=== PATIENT | female | born 1955 | race Caucasian/White ===

== ENCOUNTER 2022-02-20 07:56 | Outpatient (REF) | payer OTHER, SELFPAY ==
[2022-02-20 11:28] LABS: MANUAL DIFF FLAG NO
[2022-02-20 11:37] LABS: Basophils Absolute Auto 0.1 X10*3/uL (0.0-0.2); Basophils Percent Auto 2.8 % (0-2); Eosinophils Absolute Auto 0.2 X10*3/uL (0.0-0.4); Eosinophils Percent Auto 4.8 % (0-4); Hematocrit 43.4 % (37.0-47.0); Hemoglobin 14.6 g/dl (12.0-16.0); Imm Gran Abs Auto 0.01 X10*3/uL (0.00-0.03); Imm Gran Pct Auto 0.3 % (0.0-0.4); Lymphocytes Absolute Auto 1.5 X10*3/uL (1.2-4.9); Lymphocytes Percent Auto 37.9 % (20-40); Mean Corpuscular HGB Conc 33.6 g/dl (31.0-35.0); Mean Corpuscular Hemoglobin 31.9 pg (27.0-33.0); Mean Platelet Volume 10.1 fL (9.4-12.3); Monocytes Absolute Auto 0.4 X10*3/uL (0.1-1.2); Monocytes Percent Auto 9.7 % (2-11); Neutrophils Absolute Auto 1.8 x10*3/uL (2.0-8.3); Neutrophils Percent Auto 44.5 % (45-73); Platelet Count 251 X10*3/uL (160-400); Red Blood Count 4.57 X10*6/uL (4.20-5.50); Red Cell Distribution Width 12.5 % (11.0-16.0); White Blood Count 3.9 X10*3/uL (4.8-10.8)
[2022-02-20 11:45] LABS: Alanine Aminotransferase 16 U/L (0-31); Albumin Level 4.1 g/dL (3.5-5.0); Alkaline Phosphatase 84 U/L (39-117); Anion Gap 12 (12-20); Aspartate Amino Transferase 19 U/L (5-31); Bilirubin Total 0.4 mg/dL (0.0-1.0); Blood Urea Nitrogen 11 mg/dL (9-16); Calcium 9.6 mg/dL (8.4-10.2); Carbon Dioxide 26 mmol/L (22-29); Chloride 103 mmol/L (96-108); Cholesterol 199 mg/dL; Estimated Glomerular Filt Rate > 60; Glucose Fasting 97 mg/dL (60-99); HDL Cholesterol 58 mg/dL; LDL Cholesterol Calculated 121 mg/dl; Potassium 4.3 mmol/L (3.3-5.1); Sodium 137 mmol/L (135-145); Triglycerides 100 mg/dL
[2022-02-20 12:08] LABS: TSH reflex Free T4 4.01 uIU/mL (0.32-4.0); Vitamin D 25-OH Total 35.7 ng/mL (>30)
[2022-02-20 12:51] LABS: Free T4 (Free Thyroxine) 0.87 ng/dL (0.71-1.85)
== END 2022-02-20 07:57 | disposition home or self-care (01) ==
LOC: HO.HMGCLDS 07:56
PROVIDERS: PCP Internal Medicine; Visit Provider Internal Medicine
DX: Z00.00 Encounter for general adult medical examination without abnormal findings (principal); E55.9 Vitamin D deficiency, unspecified
CPT/HCPCS: 36415; 80053; 80061; 82306; 84439; 84443; 85025

== ENCOUNTER 2022-02-24 10:47 | Outpatient (REF) | payer OTHER, SELFPAY ==
--- NOTE | ~2022-02-24 | MM_ITS ---
EXAMINATION: MM SCREENING DIGITAL BREAST TOMOSYNTHESIS, BILATERAL CLINICAL INFORMATION: Screening. Asymptomatic. The lifetime risk of breast cancer based on the Tyrer-Cuzick Model is 4%. COMPARISON: Outside mammography: 06/09/2017, 07/01/2015 ([facility]). TECHNIQUE: Digital breast tomosynthesis is performed in both the craniocaudal and mediolateral oblique views along with computer-aided detection (CAD). Synthesized 2D images are generated from the tomosynthesis. Additional right exaggerated CC view is provided. FINDINGS: There are scattered areas of fibroglandular density (ACR BI-RADS breast composition Category b). There are no significant masses, abnormal calcifications, or other abnormalities. Parenchymal pattern is similar to prior outside studies. Benign calcifications posterior 12:30 o'clock left breast are stable. There is no developing density or architectural abnormality. The axilla and skin contours are unremarkable. No significant changes. MM/MM tomosynthesis screening BI IMPRESSION: No mammographic evidence of malignancy. ASSESSMENT: BI-RADS 2: Benign RECOMMENDATION: Routine annual mammography screening. This patient's information was entered into a reminder system with a target due date for their next mammogram.
== END 2022-02-24 10:48 | disposition home or self-care (01) ==
LOC: HO.MAMMO 10:47
PROVIDERS: Visit Provider Internal Medicine
DX: Z12.31 Encounter for screening mammogram for malignant neoplasm of breast (principal)
CPT/HCPCS: 77063; 77067

== ENCOUNTER → 2022-08-27 10:41 | Outpatient (BNVA) | payer OTHER, SELFPAY | PROVIDERS: PCP Internal Medicine; Referring Provider Internal Medicine; Visit Provider Physician Assistant | DX: Z86.010 Personal history of colon polyps (principal); Z98.890 Other specified postprocedural states; F17.210 Nicotine dependence, cigarettes, uncomplicated | CPT/HCPCS: 99202 ==

== ENCOUNTER 2023-02-05 07:51 | Day surgery (SDC) | payer MEDICARE, MEDICAID, SELFPAY ==
[2023-02-02 15:09] VITALS: BMI 20.4
--- NOTE | 2023-02-05 08:14 | HO.ANESPROP2 ---
HPI - Anesthesia Eval Consult details Narrative: 67yo female patient for Colonoscopy PMFSH Active Problems Active Problems: All Active Problems (Updated 02/05/23 by Amairani Oliveira MD) Smoking (Acute) Psoriasis (Acute) Hx of colonoscopy with polypectomy (Acute) Vitamin D deficiency (Acute) Annual physical exam (Acute) Anxiety Vagal with IV placement HR 30s BP 70/40 Past Medical History Medical History Psoriasis (a type of skin inflammation) Family History Family history of problems with anesthesia: No Surgical History History of Problems with Anesthesia: No Social History Social History (Updated 02/05/23 @ 09:40 by Amairani Oliveira MD) Housing: Apartment Patient Tobacco Use Status: Current someday Tobacco user e-Cigarette/Vaping Use: Never Used Current occupational status: employed Cognitive needs: No Hearing needs: No Vision needs: No Meds Allergies Allergy/AdvReac Type Severity Reaction Status Date / Time No Known Allergies Allergy Unverified 08/27/22 11:13 [No Known Allergies*] Active Medications: Current Medications Albuterol Sulfate (Albuterol Sulfate (0.083%) 2.5 Mg/3 Ml Vial.Neb) 2.5 mg INHALE ONCE PRN PRN Reason: Shortness of Breath/Wheezing Lactated Ringer's (Lr) 1,000 mls @ 100 mls/hr IVCONT .Q10H [facility] Home Medications Medication Instructions Recorded Confirmed Last Taken Type betamethasone dipropionate 0.05 % appl topical 02/11/22 08/27/22 Unknown History topical cream calcipotriene 0.005 % topical cream appl topical PRN 02/11/22 08/27/22 Unknown History clonazepam 0.5 mg tablet 0.25 mg PO BEDTIME 08/27/22 08/27/22 Unknown History Exam Exam Date and Time: February 05, 2023 0814 Height,Weight and Vital Signs: Height 5 ft 1.5 in Weight 49.895 kg Vital Signs Temp Pulse Resp BP Pulse Ox O2 Del Method 02/05/23 09:46 97.1 F 72 18 151/76 H 100 Room Air Airway Mallampati Class: II TM Dist: >3cm Neck ROM: Full Loose/Missing/Broken Teeth: No (Denies broken, loose, missing teeth) Heart: RRR Lungs: CTAB Assessment and Plan Assessment Anesthesia Assessment: Anesthesia Plan Discussed and Chart Reviewed Final Anesthetic Review Family History of Problems with Anesthesia: No History of Problems with Anesthesia: No NPO: Yes ASA Class: II Final Preanesthetic Review: No Changes in Pt Med Stat, Meds/Allgs Chart Reviewed, Consent Obtained/Reviewed and Anes Risks/Benef Reviewed Patient Risk: Intermediate Procedure Risk: Low Assessment/Block/Sedation in SS: Assess/Block/Sedation-SS Anesthetic Plan Anesthetic Plan: MAC: Disposition: Standard PACU
--- NOTE | 2023-02-05 08:32 | MHC.SHP ---
Pre-Procedural Eval Section A Date of Service: 02/05/23 The patient is an INPATIENT: No The History & Physical has been completed within 30 days and I have reviewed it.: No Section B Chief Complaint: screening, hx colonic polyps Relevant Family History (Specify if Yes): No Relevant Social History: Tobacco Use Present Medications: see Short Stay Collaborative assessment Medical History: Significant History (Psoriasis) History of Previous Operations: Relevant previous surgery/procedure and date(s) (History of colonoscopy) Allergies: Allergies Allergy/AdvReac Type Severity Reaction Status Date / Time No Known Allergies Allergy Unverified 08/27/22 11:13 [No Known Allergies*] Review of Systems Sugical H&P ROS: Negative: Constitution, Cardiovascular, Respiratory and Gastrointestinal Exam Surgical H&P Exam: Normal: Heart, Normal: Lungs, Normal: Extremities and Normal: Abdomen Plan Diagnosis/Plan: Unchanged I have reviewed the history and physical and performed a pertinent physical examination on my patient. No changes have occurred unless specified. Time Spent With Patient Time: Total time managing care of this patient today ____ minutes.
[2023-02-05] MEDS: Lactated Ringers 1,000 ML 100 ML IVCONT (08:44)
--- NOTE | 2023-02-05 09:11 | W.PM.OPN ---
Operative Note Operative Note Date of Service: 02/05/23 Narrative: COLONOSCOPY TILL CECUM WITH SNARE POLYPECTOMY, SUBMUCOSAL INJECTION AND HEMOCLIP PLACEMENT Pre-op diagnosis: Colon cancer screening, history of colon polyps Post-op diagnosis:? Colon polyps, diverticulosis Endoscopist:? Mina Subramanian MD Anesthesia:?MAC Consent: Indications for the procedure and potential complications of bleeding, perforation, reaction to medications and missed diagnosis were discussed with the patient and informed consent was obtained. Instrument: Olympus PCF H 190 L variable stiffness pediatric colonoscope Monitoring: Vital signs and clinical assessment, intermittent blood pressure monitoring, continuous EKG monitoring, Pulse oximetry and Carbon Dioxide monitoring were done throughout the procedure. Please see anesthesia flowsheet. Colon withdrawl time was 33 minutes. Procedure: The patient was placed in the left lateral decubitis position and pre-procedure medications were administered. After a digital rectal examination of the ano-rectum, the video colonoscope was inserted into the rectum and advanced through the colon to the cecum. The colonoscope was slowly withdrawn in a retrograde panoramic fashion and the colon mucosa was carefully examined including a retroflexed view of the rectum. Findings and interventions are described below. Procedure Difficulty: Without difficulty Findings: Terminal Ileum: Not evaluated Cecum: A 10 mm flat polyp raised with 3 cc of normal saline and removed with a hot stiff snare. Polypectomy site was closed with 1 hemoclip. Ascending Colon: A 15 to 18 mm flat polyp at site of previous polypectomy. Polyp was raised with 5 cc of normal saline and removed with a hot stiff snare. Polypectomy site was closed with 2 hemoclips. Transverse Colon: A 12 mm sessile polyp - removed with a hot snare Descending Colon: Normal Sigmoid Colon: Multiple 8 to 12 mm diminutive appearing polyps in the rectosigmoid. Moderate diverticulosis Rectum: Multiple 8 to 12 mm diminutive appearing polyps in the rectosigmoid - 1 polyp was removed with a hot snare. Ano-rectum: Normal Colon preparation: Good Impression and Post Procedure Diagnosis: Colonoscopy Findings: Four medium sized polyps removed Moderate diverticulosis seen in the sigmoid colon Plan: Await pathology results Patient has an appointment on 02/15/23 in the GI Clinic with EMILY Coronel. Repeat Colonoscopy interval based on path results - in 2-3 years if polyps are adenomatous and 5 years if polyps are hyperplastic (due to a hx of adenomatous colon polyps). Above findings were reviewed with the patient and colon polyps and diverticulosis handouts were given in the discharge area
[2023-02-05 09:46] VITALS: BP 151/76; PULSE 72; RESP 18; TEMP 36.2; O2SAT 100
[2023-02-05 10:14] VITALS: BP 124/68; PULSE 70; RESP 19; TEMP 36.4; O2SAT 100
[2023-02-05 10:29] VITALS: BP 130/73; PULSE 70; RESP 16; TEMP 36.4; O2SAT 100
== END 2023-02-05 10:50 | disposition home or self-care (01) ==
PROVIDERS: PCP Internal Medicine; Visit Provider Internal Medicine Gastroenterology
PROC: 0DJD8ZZ Inspection of Lower Intestinal Tract, Via Natural or Artificial Opening Endoscopic (ICD-10-PCS; CPT 45378; principal; 2023-02-05 09:30)
DX: Z12.11 Encounter for screening for malignant neoplasm of colon (principal); Z86.010 Personal history of colon polyps; D12.0 Benign neoplasm of cecum; D12.2 Benign neoplasm of ascending colon; D12.3 Benign neoplasm of transverse colon; K62.1 Rectal polyp; K57.30 Diverticulosis of large intestine without perforation or abscess without bleeding; K64.8 Other hemorrhoids; E55.9 Vitamin D deficiency, unspecified; L40.9 Psoriasis, unspecified; Z79.899 Other long term (current) drug therapy; F17.210 Nicotine dependence, cigarettes, uncomplicated
CPT/HCPCS: 45385; 45381; 88305; J2765

== ENCOUNTER → 2023-02-05 07:51 | Outpatient (BNV) | payer MEDICARE, MEDICAID, SELFPAY | PROVIDERS: PCP Internal Medicine; Visit Provider Internal Medicine Gastroenterology | DX: Z12.11 Encounter for screening for malignant neoplasm of colon (principal); Z86.010 Personal history of colon polyps; K63.9 Disease of intestine, unspecified; D12.3 Benign neoplasm of transverse colon | CPT/HCPCS: 45381; 45385 ==

== ENCOUNTER 2023-02-16 12:43 | Outpatient (AMB) | payer MEDICARE, MEDICAID, SELFPAY ==
--- NOTE | 2023-02-16 13:10 | MHC.PC.OV ---
Vital Signs 02/16/23 13:19 Height 5 ft 1.5 in Weight 116 lb BMI 21.6 BP 136/78 Blood Pressure Location Lt brachial Position Sitting Pulse 70 Pulse Source Pulse Oximeter Pulse Oximetry (%) 100 Oxygen Delivery Method Room Air Intake Visit Reasons: PE Intake Note: Pt is here today for PE. Allergies No Known Allergies [No Known Allergies*] Allergy (Unverified 02/16/23 13:21) Medication List - Last Reconciled 02/16/23 by Ivett Jaimes MD betamethasone dipropionate 0.05% appl topical calcipotriene 0.005% appl topical PRN clonazepam 0.5 mg PO BEDTIME Tobacco use date assessed: 02/16/23 Fall risk assessment: No Falls in past year Last assessed Fall Risk: 02/16/23 Dental Screening Dental Screen Date: 02/16/23 Did you have a dental visit in the last 12 months?: Yes Did you have a dental problem in the last 6 months where you did not have access to dental care?: No Was dental information given to patient?: Patient has dentist HPI PE HPI Details Pt presents for PE. [facility] Medical History (Updated 02/16/23 @ 13:36 by Ivett Jaimes MD) Psoriasis (a type of skin inflammation) Family History Father Melanoma Mother No problems noted. Social History Housing: Apartment Patient Tobacco Use Status: Current everyday Tobacco user Cigarettes Per Day: 5 e-Cigarette/Vaping Use: Never Used Current occupational status: employed Cognitive needs: No Hearing needs: No Vision needs: Yes Questionnaire PHQ-9 Over the last 2 weeks, how often have you been bothered by any of the following problems? 1. Little interest or pleasure in doing things: not at all 2. Feeling down, depressed, or hopeless: not at all 3. Trouble falling or staying asleep, or sleeping too much: not at all 4. Feeling tired or having little energy: not at all 5. Poor appetite or overeating: not at all 6. Feeling bad about yourself - or that you are a failure or have let yourself or your family down: not at all 7. Trouble concentrating on things, such as reading the newspaper or watching television: not at all 8. Moving or speaking so slowly that other people could have noticed. Or the opposite - being so fidgety or restless that you have been moving around a lot more than usual: not at all 9. Thoughts that you would be better off or of hurting yourself in some way: not at all Total score: 0 Depression Screening Interpretation: Negative Source: Developed by Drs. Ramon Fuentes, Thu Ambrosio, Moiz Heaton and colleagues, with an educational sherie from [employer]. Thrive Questionnaire Date Thrive assessed: 02/16/23 I am a: Patient What is your living situation today?: I have a steady place to live Within the past 12 months, did the food you bought not last and you didn't have the money to get more?: Never true Within the past 12 months, did you worry whether your food would run out before you got money to buy more?: Never true Do you have trouble paying for medicines?: No Do you have trouble getting transportation to medical appointments?: No Do you have trouble paying your heating and electricity bill?: No Do you have trouble taking care of your child, family member or friend?: No Do you have trouble with day-to-day activities such as bathing, preparing meals, shopping, managing finances, etc.?: No Are you currently unemployed and looking for a job?: No Are you interested in more education?: No Please select the resources that you would like help with: None Currently or been in a relationship where the following occur: no concerns reported AUDIT C Alcohol Use Questionnaire (AUDIT-C) 1. How often do you have a drink containing alcohol?: Monthly or less 2. How many drinks containing alcohol do you have on a typical day when you are drinking?: 1 or 2 3. How often do you have six or more drinks on one occasion?: Never Total Score: 1 MAYA-7 AMB Questionnaire MAYA-7 Date MAYA - 7 assessed: 02/16/23 Feeling nervous, anxious, or on edge: 0 = Not at all Not being able to stop or control worryin = Not at all Worrying too much about different things: 0 = Not at all Trouble relaxin = Not at all Being so restless that it is hard to sit still: 0 = Not at all Becoming easily annoyed or irritable: 0 = Not at all Feeling afraid as if something awful might happen: 0 = Not at all Total MAYA-7 score (0-4 normal; 5-9 mild; 10-14 moderate; 15-21 severe): 0 Source: Developed by Drs. Ramon Fuentes, Thu Ambrosio, Moiz Heaton and colleagues, with an educational sherie from [employer]. Review of Systems Const All systems reviewed & are unremarkable except as noted in HPI and below Reports no additional complaints Eyes Reports no additional complaints ENT Reports no additional complaints Card Reports no additional complaints Resp Reports no additional complaints GI Reports no additional complaints Reports no additional complaints Physical exam (Primary Care) Vital Signs: Last Vital Signs Pulse 70 02/16/23 13:19 BP 136/78 02/16/23 13:19 Pulse Ox 100 02/16/23 13:19 Oxygen Delivery Method Room Air 02/16/23 13:19 BMI result Body Mass Index 21.6 Tobacco/Smoking Status: Tobacco use Status Tobacco use date assessed 02/16/23 02/16/23 13:26 Patient Tobacco Use Status Current everyday Tobacco 02/16/23 13:26 e-Cigarette/Vaping Use Never Used 02/16/23 13:10 PHQ-9: PHQ-9 Score PHQ-9: Total score 0 02/16/23 13:26 Depression Screening Interpretation: Negative Thrive Assessment: Date of Thrive Assessment Date Thrive assessed 02/16/23 02/16/23 13:26 Currently or been in a relationship where the following occur: no concerns reported Const General: no acute distress HENMT Head: Yes normal to inspection Ears: hearing grossly normal bilaterally General nose exam: Normal external nose present Face and sinus: Yes normal facial exam Mouth: Normal oral and palatal mucosa present Throat: Yes posterior oropharynx normal Neck Neck: Yes no lymphadenopathy and Yes supple Resp Effort & Inspection: normal respiratory effort Auscultation: clear to auscultation bilaterally Cardio Rhythm: regular rhythm Heart sounds: S1 normal heart sound present and S2 normal heart sound present GI Inspection: Yes normal to inspection Palpation (GI): Soft to palpation Percussion: Yes normal to percussion Auscultation: normal bowel sounds Assessment and Plan Assessment & Plan (1) Annual physical exam: Code(s): Z00.00 - Encounter for general adult medical examination without abnormal findings Plan: well balanced diet, regular exercise, tobacco quitting discussed. check DEXA , return for labs (2) Vitamin D deficiency: Code(s): E55.9 - Vitamin D deficiency, unspecified Plan: cont vit D (3) Hx of colonoscopy with polypectomy: Comment: 02/2020 2 polyps serrated, Dr Subramanian, 01/24 4 POLYPS removed, recheck 2 yrs Code(s): Z98.890 - Other specified postprocedural states; Z86.010 - Personal history of colonic polyps (4) Postmenopausal: Code(s): Z78.0 - Asymptomatic menopausal state Orders: Orders Comprehensive [place]. Panel Fast Today E55.9 - Vitamin D deficiency, unspecified, Z00.00 - Encounter for general adult medical examination without abnormal findings Lipid Panel Today E55.9 - Vitamin D deficiency, unspecified, Z00.00 - Encounter for general adult medical examination without abnormal findings TSH reflex Free T4 Today E55.9 - Vitamin D deficiency, unspecified, Z00.00 - Encounter for general adult medical examination without abnormal findings Complete Blood Count Auto Diff Today E55.9 - Vitamin D deficiency, unspecified, Z00.00 - Encounter for general adult medical examination without abnormal findings UA w Microscopic Today E55.9 - Vitamin D deficiency, unspecified, Z00.00 - Encounter for general adult medical examination without abnormal findings XR DEXA axial skeleton Today Z78.0 - Asymptomatic menopausal state Coding Level of Care Code Est Pt Prev Care >65y(37541) Diagnoses Annual physical exam Z00.00 Vitamin D deficiency E55.9 Hx of colonoscopy with polypectomy Z98.890; Z86.010 Postmenopausal Z78.0
[2023-02-16 13:19] VITALS: BP 136/78; PULSE 70; O2SAT 100; BMI 21.6
== END 2023-02-16 14:00 | disposition home or self-care (01) ==
PROVIDERS: Visit Provider Internal Medicine
DX: Z00.00 Encounter for general adult medical examination without abnormal findings (principal); E55.9 Vitamin D deficiency, unspecified; Z98.890 Other specified postprocedural states; Z86.010 Personal history of colon polyps; Z78.0 Asymptomatic menopausal state
CPT/HCPCS: 99397

== ENCOUNTER 2023-03-01 | Outpatient (REF) | payer MEDICARE, MEDICAID, SELFPAY | END 2023-03-01 00:01 | disposition home or self-care (01) | LOC: CF | PROVIDERS: PCP Internal Medicine; Visit Provider Physician Assistant | DX: D12.6 Benign neoplasm of colon, unspecified (principal) | CPT/HCPCS: 99212 ==

== ENCOUNTER 2023-03-01 11:53 | Outpatient (AMB) | payer MEDICARE, MEDICAID, SELFPAY ==
--- NOTE | 2023-03-01 11:41 | MHC.OFFVIS ---
Intake Vital Signs 03/01/23 11:48 Height 5 ft 1.5 in Weight 116 lb BMI 21.6 BP 128/74 Blood Pressure Location Lt brachial Position Sitting Pulse 75 Intake Visit Reasons: S/p colo-Moris Intake Note: Patient follow up for Colonoscopy results. Patient denies any GI issues. Senior Benefits Analyst Required: No Accompanied by: Spouse Allergies No Known Allergies [No Known Allergies*] Allergy (Verified 03/01/23 11:41) HPI HPI Comments History of Present Illness Details a 67 y/o fmale with hx colon polyps- f/u after colonoscopy with polypectomy- the is present She has normal bowel pattern, could appy No GI complaints PFSH Medical History (Updated 03/01/23 @ 12:35 by Raven Connolly PA-C) Psoriasis (a type of skin inflammation) Surgical History Hx of colonoscopy Family History Father Melanoma Mother No problems noted. Social History Housing: Apartment Patient Tobacco Use Status: Current everyday Tobacco user Cigarettes Per Day: 5 e-Cigarette/Vaping Use: Never Used Current occupational status: employed Cognitive needs: No Hearing needs: No Vision needs: Yes Review of Systems Const All systems reviewed & are unremarkable except as noted in HPI and below Card Denies chest pain and Denies dyspnea Resp Denies dyspnea GI Denies abdominal pain Physical Exam Vital Signs: Last Vital Signs Pulse 75 03/01/23 11:48 BP 128/74 03/01/23 11:48 BMI result Body Mass Index 21.6 Const General: cooperative, comfortable and no acute distress Orientation/consciousness: patient oriented x3 Limitations: no limitations Resp Effort & Inspection: normal respiratory effort and able to speak in complete sentences Skin General skin exam: no rashes or lesions noted Neuro General: patient oriented x3 Extrem General: Yes full ROM Psych Appearance: grossly normal and well kempt Mental Status: mental status grossly normal Speech and movement: Normal speech and movement present and Clear speech present Affect: Animated affect present and Anxious affect present Thought process: Normal thought process present Thought content: Normal thought content present Results Reviewed Results Reviewed: ge/Sex: 67/F Attending: Mina Subramanian MD : 1955 Submitted by: Mina Subramanian MD Copies to: Ivett Jaimes MD MR #: [id number] ? Status: DEP [facility] Collected: 02/05/23 Location: [facility] Received: 02/05/23 Diagnosis A.? Cecum, polypectomy:? Fragments of sessile serrated lesion/polyp; negative for cytologic dysplasia. B.? Colon, ascending, polypectomy:? Sessile serrated lesion/polyp; negative for cytologic dysplasia. C.? Colon, transverse, polypectomy:? Tubular adenoma; negative for high-grade dysplasia or carcinoma. D.? Rectum, polypectomy:? Hyperplastic mucosal polyp. Clinical History Pre-Op Dx:? Colon cancer screening, hx colonic polyps Post-Op Dx: colon polyps, diverticulosis, hemorrhoids Findings: Terminal Ileum: Not evaluated Cecum:? A 10 mm flat polyp raised with 3 cc of normal saline and removed with a hot stiff snare. Polypectomy site was closed with 1 hemoclip. Ascending Colon:? A 15 to 18 mm flat polyp at site of previous polypectomy. Polyp was raised with 5 cc of normal saline and removed with a hot stiff snare. Polypectomy site was closed with 2 hemoclips. Transverse Colon:? A 12 mm sessile polyp - removed with a hot snare Descending Colon:? Normal Sigmoid Colon:? Multiple 8 to 12 mm diminutive appearing polyps in the rectosigmoid. ? Moderate diverticulosis Rectum:? Multiple 8 to 12 mm diminutive appearing polyps in the rectosigmoid - 1 polyp was removed with a hot snare.? Ano-rectum:? Normal Colon preparation:? Good? Impression and Post Procedure Diagnosis: Colonoscopy Findings: Four medium sized polyps removed Moderate diverticulosis seen in the sigmoid colon Plan: Await pathology results Patient has an appointment on 02/15/23 in the GI Clinic with EMILY Coronel. Repeat Colonoscopy interval based on path results - in 2-3 years if polyps are adenomatous and 5 years if polyps are hyperplastic (due to a hx of adenomatous colon polyps). Above findings were reviewed with the patient and colon polyps and diverticulosis handouts were given in the discharge area Assessment & Plan Assessment & Plan (1) Sessile serrated polyp of colon: Code(s): D12.6 - Benign neoplasm of colon, unspecified Plan: 2 year (2) Tubular adenoma: Code(s): D36.9 - Benign neoplasm, unspecified site (3) Hyperplastic colon polyp: Code(s): K63.5 - Polyp of colon Plan: Reviewed repeat procedure report, pathology and recommendations Opportunity for questions answered to her satisfaction Plan 2 year repeat colon HFD- Diverticulitis ER protocol Patient Instructions: Pleasant is very anxious 67-year-old female personal history colon polyps follows up after recent colonoscopy. Discussed procedure report pathology recommendation Repeat asymptomatic colonoscopy 2 years Maintain high-fiber diet, diverticulosis/diverticulitis ER protocol reviewed There are no major barriers to understanding identify Encouraged to call questions or concerns Appreciate the opportunity assist in the care the Coding Level of Care Code Est Pt Level 3 (53196) Diagnoses Sessile serrated polyp of colon D12.6 Tubular adenoma D36.9 Hyperplastic colon polyp K63.5 Time Spent (min) 30
[2023-03-01 11:48] VITALS: BP 128/74; PULSE 75; BMI 21.6
== END 2023-03-01 13:42 | disposition home or self-care (01) ==
PROVIDERS: PCP Internal Medicine; Visit Provider Physician Assistant
DX: K63.5 Polyp of colon (principal)
CPT/HCPCS: 99213

== ENCOUNTER 2023-05-06 10:18 | Outpatient (REF) | payer MEDICARE, SELFPAY ==
--- NOTE | ~2023-05-06 | MM_ITS ---
EXAMINATION: BONE DENSITOMETRY CLINICAL INDICATION: Asymptomatic menopausal state. COMPARISON: This is the patient's baseline examination. TECHNIQUE: Using a Ceregene DXA System (software version: 13.1) manufactured by [employer], dual-energy x-ray absorptiometry was performed of the lumbar spine and left hip. The images are of good technical quality. Summary results are attached. FINDINGS: LEFT FEMUR, NECK: BMD 0.719 g/cm2, Z-score -0.6, T-score -2.3, osteopenia. LEFT FEMUR, TOTAL: BMD 0.736 g/cm2, Z-score -0.7, T-score -2.2, osteopenia. AP SPINE L1-L4: BMD 0.741 g/cm2, Z-score -1.7, T-score -3.7, osteoporosis. IDENTIFIED RISK FACTORS: Menopause, current smoker. HISTORY OF FRACTURE: None listed. MEDICATIONS: Vitamin D. MM/XR DEXA axial skeleton IMPRESSION: 1. DIAGNOSIS: Osteoporosis based on the lowest T-score value of -3.7 in the lumbar spine applying World Health Organization criteria. 2. 10-YEAR FRACTURE RISK PREDICTION, FRAX: According to the guidelines, FRAX calculation should only be performed on patients in the osteopenia bone density category. Therefore, FRAX was not performed on this patient. 3. Treatment Recommendations: NOF guidelines recommend consideration for treatment in postmenopausal women and men age 50 and older presenting with the following: -A hip or vertebral (clinical or morphometric) fracture. -T-score less than or equal to -2.5 at the femoral neck or spine after appropriate evaluation to exclude secondary causes. -Low bone mass at the hip or spine and a 10-year fracture probability by FRAX of greater than or equal to 3% for hip fracture or greater than or equal to 20% for major osteoporotic fracture based on the [place] adapted WHO algorithm. 4. Other Recommendations: All treatment decisions require clinical judgment and consideration of individual patient factors, including patient preferences, comorbidities, previous drug use, risk factors not captured in the FRAX model (e.g. frailty, falls, vitamin D deficiency, increased bone turnover, interval significant decline in bone density) and possible under or overestimation of fracture risk by FRAX. Additional medical evaluation for secondary cause of low bone mineral density may be appropriate. FUTURE SCAN RECOMMENDATION: People with diagnosed cases of osteoporosis or at high risk for fracture should have regular bone mineral density tests. For patients eligible for Medicare, routine testing is allowed once every 2 years. The testing frequency can be increased to one year for patients who have rapidly progressing disease, those who are receiving or discontinuing medical therapy to restore bone mass, or have additional risk factors.
== END 2023-05-06 10:19 | disposition home or self-care (01) ==
LOC: HO.MAMMO 10:18
PROVIDERS: PCP Internal Medicine; Visit Provider Internal Medicine
DX: Z13.820 Encounter for screening for osteoporosis (principal); Z78.0 Asymptomatic menopausal state
CPT/HCPCS: 77080

== ENCOUNTER 2024-02-16 08:52 | Outpatient (REF) | payer MEDICARE, MEDICAID, SELFPAY ==
[2024-02-16 10:32] LABS: MANUAL DIFF FLAG NO
[2024-02-16 10:36] LABS: Basophils Absolute Auto 0.1 X10*3/uL (0.0-0.2); Eosinophils Absolute Auto 0.2 X10*3/uL (0.0-0.4); Hematocrit 44.9 % (37.0-47.0); Imm Gran Abs Auto 0.02 X10*3/uL (0.00-0.03); Imm Gran Pct Auto 0.5 % (0.0-0.4); Lymphocytes Absolute Auto 1.6 X10*3/uL (1.2-4.9); Lymphocytes Percent Auto 37.1 % (20-40); Mean Corpuscular HGB Conc 33.4 g/dl (31.0-35.0); Mean Corpuscular Hemoglobin 31.3 pg (27.0-33.0); Mean Corpuscular Volume 93.7 fL (80.0-98.0); Mean Platelet Volume 9.6 fL (9.4-12.3); Monocytes Absolute Auto 0.4 X10*3/uL (0.1-1.2); Monocytes Percent Auto 8.2 % (2-11); Neutrophils Percent Auto 46.2 % (45-73); Platelet Count 244 X10*3/uL (160-400); Red Blood Count 4.79 X10*6/uL (4.20-5.50); Red Cell Distribution Width 12.4 % (11.0-16.0); White Blood Count 4.4 X10*3/uL (4.8-10.8)
[2024-02-16 10:46] LABS: Appearance Urine Clear; Color Urine Yellow; Glucose Urine UA Negative (Negative); Leukocyte Esterase Urine Trace (Negative); Nitrite Urine Negative (Negative); PH 6.5 (5.0-9.0); UMIC TRIGGER UA YES; Urine Blood Negative (Negative); Urine Ketones Negative (Negative); Urine Protein Negative (Neg-Trace)
[2024-02-16 10:52] LABS: Bacteria Urine None Seen (None Seen); Hyaline Casts Urine 0-2 /LPF (0-2); RBC Urine 0-2 /HPF (0-2); WBC Urine 0-5 /HPF (0-5)
[2024-02-16 11:01] LABS: Alanine Aminotransferase 15 U/L (0-31); Alkaline Phosphatase 89 U/L (39-117); Anion Gap 11 (12-20); Aspartate Amino Transferase 19 U/L (5-31); Bilirubin Total 0.5 mg/dL (0.0-1.0); Blood Urea Nitrogen 14 mg/dL (9-16); Calcium 9.7 mg/dL (8.4-10.2); Carbon Dioxide 26 mmol/L (22-29); Chloride 105 mmol/L (96-108); Cholesterol 201 mg/dL (<200); Estimated Glomerular Filt Rate > 60; Glucose Fasting 86 mg/dL (60-99); HDL Cholesterol 59 mg/dL (>40); LDL Cholesterol Calculated 126 mg/dL (<100); Potassium 3.9 mmol/L (3.3-5.1); Sodium 138 mmol/L (135-145); Triglycerides 83 mg/dL (<150)
[2024-02-16 11:06] LABS: TSH reflex Free T4 3.12 uIU/mL (0.32-4.0)
== END 2024-02-16 08:53 | disposition home or self-care (01) ==
LOC: HO.HMGCLDS 08:52
PROVIDERS: PCP Internal Medicine; Visit Provider Internal Medicine
DX: Z00.00 Encounter for general adult medical examination without abnormal findings (principal); Z13.6 Encounter for screening for cardiovascular disorders; E55.9 Vitamin D deficiency, unspecified
CPT/HCPCS: 36415; 80053; 80061; 81001; 84443; 85025

== ENCOUNTER 2024-02-21 10:28 | Outpatient (AMB) | payer MEDICARE, MEDICAID, SELFPAY ==
[2024-02-21 10:53] VITALS: BP 134/82; PULSE 69; O2SAT 100; BMI 21.2
--- NOTE | 2024-02-21 10:53 | A.OFFVIS_ITS ---
Intake Vital Signs 02/21/24 10:53 Height 5 ft 1.5 in Weight 114 lb BMI 21.2 BP 134/82 Blood Pressure Location Lt brachial Position Sitting Pulse 69 Pulse Source Pulse Oximeter Pulse Oximetry (%) 100 Oxygen Delivery Method Room Air Intake Visit Reasons: AWV G0438 Allergies No Known Allergies [No Known Allergies*] Allergy (Verified 02/21/24 11:06) HPI AWV G0438 HPI Details Initiated the conversation about Advanced Directives. Advanced Directives help? patients prepare for current and future decisions about their medical treatment? and place of care. Discussed with patient that it is a process where a patients? current condition and prognosis are reviewed, their wishes for information? regarding their illness are elicited, and likely medical dilemmas are presented? and options discussed. The form can be amended as needed, reviewed yearly and? make changes as needed IPPE/AWV ? year old presents? for her ? Annual? Wellness Visit, initial visit.? Medical / Social History Reviewed? Past Medical History ?Yes? . ? [place]? of Care / Care Team list updated ?Yes . ? Surgical/Hospitalization? History ?Yes . ? Current Medications? (including OTC and supplements) ?Yes . ? Family History ?Yes? . ? Tobacco? Control form ?Yes . ? AUDIT-C (Alcohol use) form? ?Yes . ? Illicit drug use in Social? History ?Yes . ? Current diagnosis of? depression? ?No ? Appropriate PHQ2/PHQ9? completed ?Yes . ? Data entered by ?Medical? [employer] and reviewed by provider ? Fall Risk ? Fall? History? Have you had any falls with? injury in the past year? ?No . ? Have you had two or more? falls in the past year? ?No . ? Fall Risk Assessment: ?No? falls in the past year . ? HRA filled out by? the patient, reviewed by Provider and scanned. ? IPPE/AWV ? Balance? [place]? ?Yes . ? Tandem? walk ?Yes . ? Walk and? Turn ?Yes . ? Rise from? sit to stand ?Yes . ?Vision? Corrective? lens ?Yes ? Vision? screen ? Up-to-date, has an appointment [] for vision? screening and glaucoma screening ?Hearing? Whisper? test ?pass .? Initiated the conversation about Advanced Directives. Advanced Directives help? patients prepare for current and future decisions about their medical treatment? and place of care. Discussed with patient that it is a process where a patients? current condition and prognosis are reviewed, their wishes for information? regarding their illness are elicited, and likely medical dilemmas are presented? and options discussed. The form can be amended as needed, reviewed yearly and? make changes as needed Written? Plan?Completed. See Patient? Documents. [facility] Medical History (Updated 02/21/24 @ 11:55 by Ivett Jaimes MD) Psoriasis (a type of skin inflammation) Surgical History Hx of colonoscopy Family History Father Melanoma Mother No problems noted. Social History Housing: Apartment Patient Tobacco Use Status: Current everyday Tobacco user Cigarettes Per Day: 5 e-Cigarette/Vaping Use: Never Used Current occupational status: employed Cognitive needs: No Hearing needs: No Vision needs: Yes Questionnaire Medicare Wellness Checkup [age] What gender do you identify with?: female During the past 4 weeks, how much have you been bothered by emotional problems such as feeling anxious, depressed, irritable, sad or downhearted, and blue?: not at all During the past 4 weeks, has your physical & emotional health limited your social activities with family, friends, neighbors, or groups?: not at all During the past 4 weeks, how much bodily pain have you generally had?: no pain During the past 4 weeks, was someone available to help you if you needed & wanted help?: yes, quite a bit During the past 4 weeks, what was the hardest physical activity you could do for at least 2 minutes?: moderate Can you get to places out of walking distance without help? (For eg., can you travel alone on buses, taxis or drive your car?): Yes Can you go shopping for groceries or clothes without someone's help?: Yes Can you prepare your own meals?: Yes Can you do your housework without help?: Yes Because of any health problems, do you need the help of another person with your personal care needs such as eating, bathing, dressing or getting around the house?: No Can you handle your own money without help?: Yes During the past 4 weeks, how would you rate your health in general?: very good During the past 4 weeks how have things been going for you?: pretty well Are you having difficulties driving your car?: no Do you always fasten your seat belt when you are in a car?: yes, usually During past 4 weeks, have you been bothered by the following: never: Falling or dizzy when standing up, Sexual problems?, Trouble eating well?, Teeth or denture problems?, Problems using the telephone? and Tiredness or fatigue? Have you fallen 2 or more times in the past year?: No Are you afraid of falling?: No Are you a smoker?: yes, and I might quit During the past 4 weeks, how many drinks of wine, beer, or other alcoholic b everages did you have?: 2-5 drinks per week Do you exercise for about 20 minutes 3 or more times a week?: yes, most of the time Have you been given information to help with the following?: no: Hazards in your house that might hurt you? and no: Keeping track of your medications? How often do you have trouble taking medicines the way you have been told to take them?: I always take medicine as prescribed How confident are you that you can control & manage most of your health problems?: very confident What is your race?: White Mini Mental State Exam (MMSE) Orientation What is the (year) (season) (date) (day) (month)?: year, season, date, day and month Where are we (state) (county) (town or city) (hospital) (floor)?: state, county, town or city, hospital/clinic and floor Registration Name of 3 unrelated objects clearly and slowly, then ask patient to repeat all 3 of them. (1st repeat determines score. Make sure they can repeat all three): object 1, object 2 and object 3 Attention & Calculation (CHOOSE ONE) Ask pt to begin with 100 & count backward by 7. Stop after 5 repeats. If pt cannot ask them to spell the word WORLD backward.: 93 Spell WORLD backwards (DLROW): 5 letters Recall Ask patient to repeat the 3 items from question #3.: object 1, object 2 and object 3 Language Show patient a wristwatch & ask what it is. Repeat for pencil.: watch and pencil Ask the patient to repeat the phrase 'No ifs, ands, or buts' after you.: correct Ask the patient to 'take a piece of paper with their right hand' 'fold paper in half' 'place paper on floor': take paper in right hand, fold paper in half and place paper on floor Print the sentence 'CLOSE YOUR EYES' on a piece. If patient actually closes eyes then score.: followed written direction Give patient a blank piece of paper & ask to write a sentence. Score if it contains a noun & verb.: sentence contains subject and verb Score Score: 30 Activity of Daily Living Bathing - sponge bath, tub bath or shower: receives no assistance (gets in/out by self, if usual bathing means Dressing - getting clothes from closets & drawers, including inner/outer garments & fasteners.: gets clothes & gets completely dressed without help Toileting - going to the 'toilet room' for urine/bowel elimination & cleaning self/arranging clothes: goes to toilet room, cleans self, arranges clothes without help Transfer: moves in & out of bed and chair without help (may use support object) Continence: controls urination/bowel movements completely by self Feeding: feeds self without help Total Score: 0 Information obtained from: patient Using telephone: independent Traveling: independent Shopping: independent Preparing meals: independent Housework: independent Taking medicine: independent Managing money: independent PHQ-9 Over the last 2 weeks, how often have you been bothered by any of the following problems? 1. Little interest or pleasure in doing things: not at all 2. Feeling down, depressed, or hopeless: not at all 3. Trouble falling or staying asleep, or sleeping too much: not at all 4. Feeling tired or having little energy: not at all 5. Poor appetite or overeating: not at all 6. Feeling bad about yourself - or that you are a failure or have let yourself or your family down: not at all 7. Trouble concentrating on things, such as reading the newspaper or watching television: not at all 8. Moving or speaking so slowly that other people could have noticed. Or the opposite - being so fidgety or restless that you have been moving around a lot more than usual: not at all 9. Thoughts that you would be better off or of hurting yourself in some way: not at all Total score: 0 Depression Screening Interpretation: Negative Depression Screening Done: Yes 15642 - PHQ-9 Billing: Yes Source: Developed by Drs. Ramon Fuentes, Thu Ambrosio, Moiz Heaton and colleagues, with an educational sherie from [employer] Review of Systems Const All systems reviewed & are unremarkable except as noted in HPI and below Reports no additional complaints Eyes Reports no additional complaints Card Reports no additional complaints Resp Reports no additional complaints GI Reports no additional complaints Reports no additional complaints Physical Exam Vital Signs: Last Vital Signs Pulse 69 02/21/24 10:53 BP 134/82 02/21/24 10:53 Pulse Ox 100 02/21/24 10:53 Oxygen Delivery Method Room Air 02/21/24 10:53 BMI result Body Mass Index 21.2 Const General: no acute distress HEENT Head: Yes normal to inspection Ears: hearing grossly normal bilaterally Neck Neck: Yes no lymphadenopathy and Yes supple Resp Effort & Inspection: normal respiratory effort Auscultation: clear to auscultation bilaterally Cardio Rhythm: regular rhythm Heart sounds: S1 normal heart sound present and S2 normal heart sound present GI Inspection: Yes normal to inspection Palpation (GI): Soft to palpation Percussion: Yes normal to percussion Auscultation: normal bowel sounds Extrem General: Yes no clubbing, cyanosis or edema Assessment & Plan Assessment & Plan (1) Annual physical exam: Code(s): Z00.00 - Encounter for general adult medical examination without abnormal findings Plan: Well-balanced diet regular exercise tobacco quitting discussed with the patient she will schedule mammogram. (2) Hx of colonoscopy with polypectomy: Comment: 02/2020 2 polyps serrated, Dr Subramanian, 01/24 4 POLYPS removed, recheck 2 yrs Code(s): Z98.890 - Other specified postprocedural states; Z86.010 - Personal history of colonic polyps Plan: Follow-up with GI next year for repeat colonoscopy (3) Osteoporosis: Comment: 05/2023 T score -3.7 AP spine, pt declined treatment Code(s): M81.0 - Age-related osteoporosis without current pathological fracture Plan: Continue vitamin-D supplement weight-bearing exercises, patient declined medications (4) Tobacco consumption: Comment: 07/06 PPD x 20+years, Code(s): Z72.0 - Tobacco use Plan: Tobacco quitting discussed with the patient Quality Reporting (2019) Depression/Bipolar (159/160/161/177) PHQ-9: Total score: 0 Coding Level of Care Code Medicare Subsequent (G0439) Diagnoses Annual physical exam Z00.00 Hx of colonoscopy with polypectomy Z98.890; Z86.010 Osteoporosis M81.0 Tobacco consumption Z72.0 CPT Codes Advance Care Planning - Advance Care Planning discussion: On file, no changes ([id number]) Advance Care Planning - Time spent: 1-15 minutes, on File ([id number]) Advance Care Planning Advance Care Planning discussion: On file, no changes Forms completed: Health Care Proxy Time spent: 1-15 minutes, on File
== END 2024-02-21 11:49 | disposition home or self-care (01) ==
PROVIDERS: PCP Internal Medicine; Visit Provider Internal Medicine
DX: Z00.00 Encounter for general adult medical examination without abnormal findings (principal); Z98.890 Other specified postprocedural states; Z86.010 Personal history of colon polyps; M81.0 Age-related osteoporosis without current pathological fracture; Z72.0 Tobacco use
CPT/HCPCS: 1123F; G0439

== ENCOUNTER 2025-03-30 07:52 | Outpatient (REF) | payer MEDICARE, SELFPAY ==
--- OUTSIDE RECORDS SUMMARY | 2025-03-30 07:55 | XMS_ITS | Data Portability ---
Author Organization [place] - [facility], Allergy Address [address] [place] [id number] Care Team Providers Care Book Cleaner Name Role Phone NAGELA BIRD Primary Care Provider [phone] Assessment Encounter Date Assessment Date Assessment LastModified by Organization Details LastModified Time 03/21/2024 03/21/2024 Patient with cerumen impaction and mild disequilibrium, which she reports she sometimes develops when she has impacted cerumen. Cerumen was successfully removed today, which patient tolerated well. Tympanometry was obtained to verify there was no effusion, as the severely collapsed canal on the right side limits view of the TM. This demonstrated negative air pressure without fluid accumulation. Consider daily use of fluticasone nasal spray utilizing crossed-hand technique. Patient was advised to call if disequilibrium worsens or fails to improve after today's procedure. Not available 03/21/2024 11:24:29 06/30/2024 06/30/2024 Cerumen successfully removed bilaterally, which patient tolerated well. Due to narrow canals, recommend 3 to 4-month follow-up for cerumen. Patient to call sooner with any change in hearing or other issues that arise. Not available 06/30/2024 13:30:36 10/24/2024 10/24/2024 Patient presents for evaluation of ears. Cerumen successfully removed bilaterally, which patient tolerated well. Otologic exam otherwise unremarkable. Patient reported hearing returned to baseline thereafter and declined audiometric testing. Return in 3-6 months for cerumen removal. Avoid Q-tips. Avoid or protect against loud noise. Recommend annual audiometric testing, sooner with perceived change. Patient understands to call sooner with any issues that arise. Not available 10/24/2024 11:18:09 01/29/2025 01/29/2025 69yo female with psoriasis presents for cerumen removal. Cerumen impactions removed bilaterally, which patient tolerated well. TMs are normal to inspection. External auditory canals with moderate collapse. Hearing returned to baseline after debridement. Recommend 6-month follow-up for cerumen debridement with hearing test after, sooner with issues. [email or web address] Not available 01/29/2025 12:23:01 Plan of Treatment Reminders Order Date Submit Date Provider Last Modified By Organization Details Last Modified Time Details Appointments Establish ed 15 2024 11:00A M KAILASH MENDEZ PA-C Not available Not available Not available Lab None recorded. Referral None recorded. Procedures None recorded. Surgeries None recorded. Imaging None recorded. Medication Orders None recorded. Patient TargetsNo targets recorded. Patient InstructionsNo instructions recorded. Reason for Referral None Reported. Results Created Date Observation Date Name Description Value Unit Range Abnormal Flag Note LastModifiedBy Organization Detail LastModifiedTime 02/22/20 24 09/05/2019 audio gram No observ ation record ed. [email or web address] Not Available 22:25:54 02/22/20 24 03/07/2019 imagi ng/di agnos tic resul t No observ ation record ed. [email or web address] Not Available 22:26:30 03/21/20 audio gram No observ ation record ed. [email or web address] Not Available 2023 13:37:06 Result Notes None recorded. Problems Name Problem SNOMED Code Status Onset Date Resolution Date Notes Provider Name and Address Organization Details Recorded Time Sensorin eural hearing loss 64693732 Active 2018 Sensorin eural hearing loss, unilater al, right ear, with unrestri cted hearing on the contrala teral side; Note: Date Diagnose d: 03/07/2019 10:06 AM (H90.41) Not Available [employer] 02:47:09 Benign paroxysm al position al vertigo 461147092 Completed 201802/04/2024 Benign paroxysm al vertigo, unspecif ied ear; Note: Date Diagnose d: 03/07/2019 9:44 AM (H81.10) Not Available [facility] 4 02:47:07 Impacted cerumen of bilatera l ears 10371171553 76685 Active 2018 Impacted cerumen, bilatera l; Note: Date Diagnose d: 03/07/2019 9:46 AM (H61.23) Not Available [facility] 4 02:47:05 Impacted cerumen 56712999 Active 2019 Impacted cerumen; Note: Date Diagnose d: 09/05/2019 3:22 PM (380.4) Not Available [facility] 4 02:47:06 Dysfunct ion of right eustachi an tube 58939457473 81866 Active 2023 ISHMAEL JOHNSON, AUD [address] [facility] [place] [address], [place], [phone] , [facility] 10:45:48 Problem Notes None recorded. Procedures Surgical History Date Name Laterality Status Provider Name and Address Organization Details Recorded Time 01/30/20 25 Cerumen removal without microscope bilat completed KAILASH MENDEZ PA-C 100 [facility],[place] [address], [place], [address], [place] - [facility] 01/29/2025 12:21:19 10/25/19 25 Cerumen removal without microscope bilat completed Yuliya Sheldon [place] - [facility] 10/24/2024 11:17:54 06/30/20 24 Cerumen removal without microscope bilat completed Yuliya Sheldon [place] - [facility] 06/30/2024 13:30:11 03/21/20 24 Cerumen removal without microscope bilat completed Yuliyajerson Sheldon [place] - [facility] 03/21/2024 10:43:12 03/21/20 24 Tympanometry - 04377 completed ISHMAEL JOHNSON, AUD [address] [facility] [address],[place] [address], [place], [address], [place] - [facility] 03/21/2024 10:45:28 11/24/19 24 Cerumen removal without microscope bilat completed Yuliya Sheldon [place] - [facility] 11/24/2023 13:25:45 Imaging Results None recorded. Procedure Notes None recorded. Medical Equipment None Reported. Allergies Allergen ID Allergen Name Allergen Category Reaction Reaction Severity Criticality Documentation Date Start Date Code Code System Note Provider Name and Address Organization Details Recorded Time 311412 Product containin g penicilli n (product) medicatio n Not available Not available Not available 11/24/2023 02006 8001 SNOMED Ting castellon [facility] 13:07:36 Medications Name Sig Start Date Stop Date Status Note LastModified by Organization Details LastModified Time betametha sone valerate 0.1 % topical ointment 10/24 completed Medicati on ID: [id number] D uration Value: 20 Brand Name: betameth asone valerate Send Method: E-Prescr ibed Sub s Allowed: subs OK Medic ationGen ericName : betameth asone valerate Not Available Not Available Not Available clonazepa m 0.5 mg tablet 10/24 completed Medicati on ID: [id number] D uration Value: 30 Brand Name: clonazep am Send Method: E-Prescr ibed Sub s Allowed: subs OK Speci al Instruct ion: TK 1 T PO [facility] cation nericNam e: clonazep am Not Available Not Available Not Available betametha sone dipropion ate 0.05 % topical cream APPLY TO THE AFFECTED AREAS THROUGH OUT BODY TWICE DAILY X2 WEEKS, BREAK ONE WEEK. REPEAT NEEDED 10/24 completed Not Available Not Available Not Available nitrofura ntoin monohydra te/macroc rystals 100 mg capsule TAKE 1 CAPSULE BY MOUTH TWICE A DAY FOR 7 DAYS 10/24 completed Not Available Not Available Not Available Vitals Date Recorded Body height Body mass index (BMI) Body weight Provider Name and Address Organization Details Last Updated DateTime 10/24/2024 154.94 cm 20.8 kg/m2 75034.16 g Maritza Lani [facility] 10/24/2024 11:08:26 Date Recorded Body height Body mass index (BMI) Body weight Provider Name and Address Organization Details Last Updated DateTime 11/24/2023 154.94 cm 21.5 kg/m2 97067.53 g Ting Cesar [place] - [facility] 11/24/2023 13:07:20 Date Recorded Body height Body mass index (BMI) Body weight Provider Name and Address Organization Details Last Updated DateTime 01/29/2025 154.94 cm 22.5 kg/m2 41319.49 g Maritza Resendezmarcel [place] - [facility] 01/29/2025 10:56:03 Date Recorded Body height Body mass index (BMI) Body weight Provider Name and Address Organization Details Last Updated DateTime 03/21/2024 154.94 cm 21.5 kg/m2 11574.53 g Estevankarma Gaby [place] - [facility] 03/21/2024 10:06:10 Date Recorded Body height Body mass index (BMI) Body weight Provider Name and Address Organization Details Last Updated DateTime 06/30/2024 154.94 cm 21.5 kg/m2 62507.53 g Ting Cesar [facility] 06/30/2024 11:44:08 Social History None recorded. Functional Status None recorded. Mental Status None recorded. Family History Nothing Reported. Medical History No medical history recorded. Gynecological HistoryNo gynecological history recorded. Obstetrics History GPAL:G 0 P 0 0 0 0 Past Encounters Encounter ID Performer Location Encounter Start Date Encounter Closed Date Diagnosis/Indication Diagnosis SNOMED-CT Code Diagnosis ICD10 Code Diagnosis IMO Codes Diagnosis Note [id number] YULIYA SHELDON PA-C [facility] [address] [place] [address] 11/24/2023 12:41:22 11/24/2023 13:25:23 Impacted cerumen of bilateral ears 6598090663 913177 H61.23 [id number] YULIYA SHELDON PA-C [facility] [address] [place] [address] 03/21/2024 09:53:07 03/21/2024 10:51:07 Impacted cerumen of bilateral ears 1510144983 075691 H61.23 Dysfunctio n of right eustachian tube 3376457094 336577 H69.91 Audiologic al evaluation results: 03/21/2024 Tympanomet ry: Right Ear:Type C Left Ear:Type A [id number] YULIYA SHELDON PA-C [facility] [address] [place] [address] 06/30/2024 11:07:50 06/30/2024 11:54:56 Impacted cerumen of bilateral ears 2305011217 816249 H61.23 [id number] YULIYA SHELDON PA-C [facility] [address] [place] [address] 10/24/2024 10:55:18 10/24/2024 11:16:46 Impacted cerumen of bilateral ears 0776678632 919274 H61.23 [id number] KIALASH MENDEZ PA-C [facility] [address] [address] 01/29/2025 10:45:10 01/29/2025 11:08:42 Impacted cerumen of bilateral ears 0604538492 640427 H61.23 Sensorineu ral hearing loss 42038762 H90.41 Health Concerns Section Related Observation LastModified by Organization Detai ls LastModified Time None Recorded Concern Status LastModified by Organization Details LastModified Time None Recorded Advance Directives Directive None Recorded Payers Insurance Date Sequence Insurance Name Policy Number Policy Quezada Covered Member ID Quezada Member ID Guarantor Name 11/24/2023 1 *SELF PAY* Aure Dillard 01/29/2025 1 [place] [employer] Jolynn Dillard [id number] Jolynn Dillard 01/29/2025 2 [place] [facility] Jolynn Dillard [id number] Jolynn Dlilard 01/29/2025 2 [facility] (MEDICAID REPLACEMENT - HMO) [place] Jolynn Dillard [id number] Jolynn Dillard Notes Date Note Type Note Provider Name and Address Organization Details Recorded Time 11/24/2023 text/html ROS as noted in the HPI 67-year-old female presents for cerumen removal. She reports that she has small ear canals and likes to get them cleaned every 3 to 4 months. She reports the ears feel full but the hearing is still fairly good. She denies otalgia and otorrhea. Yuliya castellon [place] - [facility] 11/24/2023 13:27:42 03/21/2024 text/html ROS as noted in the [facility] 68 year old female presents for 4 month follow up and recheck of ears. She reports she has felt a little off-balance lately, notes this sometimes happens when she has a cerumen impaction. The hearing seems unchanged. There is no pain and no otorrhea. There is no associated syncope, confusion, slurred speech, vision change, loss of visual field, chest pain, heart palpitations, nor extremity or facial weakness or paralysis. Yuliya castellon [place] - [facility] 03/21/2024 11:25:27 06/30/2024 text/html ROS as noted in the [facility] 68-year-old female presents for evaluation of the ears. Denies change in hearing, otalgia, and otorrhea. No Q-tip use DONOVAN MARI MD [address] [place] [address], [phone], [facility] 06/30/2024 17:05:24 10/24/2024 text/html ROS as noted in the [facility] 68 year old female presents for 4 month recheck of ears. She reports she has felt like she has a cerumen impaction. The hearing seems a little diminished. There is no pain and no otorrhea. Yuliya castellon [place] - [facility] 10/24/2024 11:18:33 01/29/2025 text/html ROS as noted in the [facility] 69yo female with psoriasis presents for evaluation of the ears. Reports muffled hearing, right worse than left. Denies ear pain, drainage, tinnitus, or Qtip use. VANESSA YU MD [address] [place] [address], [phone], [facility] 01/30/2025 08:52:34 OBGyn Episode No OBEpisode recorded.
[2025-03-30 10:27] LABS: Appearance Urine Clear; Glucose Urine UA Negative (Negative); PH 6.5 (5.0-9.0); Specific Gravity - Urine <= 1.005 (1.005-1.025); UMIC TRIGGER UA YES
[2025-03-30 10:38] LABS: Hematocrit 46.3 % (37.0-47.0); Hemoglobin 15.4 g/dl (12.0-16.0); Imm Gran Abs Auto 0.02 X10*3/uL (0.00-0.03); Imm Gran Pct Auto 0.4 % (0.0-0.4); Lymphocytes Absolute Auto 1.7 X10*3/uL (1.2-4.9); MANUAL DIFF FLAG SCAN; Mean Corpuscular HGB Conc 33.3 g/dl (31.0-35.0); Mean Corpuscular Hemoglobin 31.3 pg (27.0-33.0); Mean Corpuscular Volume 94.1 fL (80.0-98.0); NRBC Abs Auto 0.000 X10*3/uL (0.0-0.012); NRBC Pct Auto 0.0 /100WBC (0.0-0.2); Platelet Count 251 X10*3/uL (160-400); Red Blood Count 4.92 X10*6/uL (4.20-5.50); SCAN SMEAR FLAG 1; White Blood Count 4.5 X10*3/uL (4.8-10.8)
[2025-03-30 11:32] LABS: Alanine Aminotransferase 23 U/L (0-31); Albumin Level 4.4 g/dL (3.5-5.0); Alkaline Phosphatase 96 U/L (39-117); Anion Gap 10 (12-20); Aspartate Amino Transferase 31 U/L (5-31); Blood Urea Nitrogen 13 mg/dL (9-16); Calcium 9.5 mg/dL (8.4-10.2); Carbon Dioxide 27 mmol/L (22-29); Chloride 106 mmol/L (96-108); Cholesterol 209 mg/dL (<200); Estimated Glomerular Filt Rate > 60; HDL Cholesterol 62 mg/dL (>40); Potassium 4.2 mmol/L (3.3-5.1); Sodium 139 mmol/L (135-145); Total Protein 7.2 g/dL (6.5-8.0); Triglycerides 95 mg/dL (<150)
== END 2025-03-30 07:53 | disposition home or self-care (01) ==
LOC: HO.HMGCLDS 07:52
PROVIDERS: PCP Internal Medicine; Visit Provider Internal Medicine
DX: Z00.00 Encounter for general adult medical examination without abnormal findings (principal); M81.0 Age-related osteoporosis without current pathological fracture; E55.9 Vitamin D deficiency, unspecified; Z13.6 Encounter for screening for cardiovascular disorders; Z13.29 Encounter for screening for other suspected endocrine disorder
CPT/HCPCS: 36415; 80053; 80061; 81001; 82306; 84443; 85025

== ENCOUNTER 2025-04-06 13:29 | Outpatient (AMB) | payer MEDICARE, SELFPAY ==
[2025-04-06 13:34] VITALS: BP 136/82; PULSE 83; RESP 19; TEMP 36.7; O2SAT 97; BMI 20.8
--- NOTE | 2025-04-06 13:34 | AM.OFFVISMDC ---
Intake Vital Signs 04/06/25 13:34 Height 5 ft 1.5 in Weight 112 lb BMI 20.8 BP 136/82 Blood Pressure Location Rt brachial Position Sitting Respiration 19 Pulse 83 Pulse Source Pulse Oximeter Temp 98.1 F Temp Source Oral Pulse Oximetry (%) 97 Oxygen Delivery Method Room Air Intake Visit Reasons: Reschedule SWV G0439 Intake Note: Pt is here today for AWV. Allergies No Known Allergies (No Known Allergies*) Allergy (Verified 04/06/25 13:36) HPI Reschedule SWV G0439 HPI Details Initiated the conversation about Advanced Directives. Advanced Directives help? patients prepare for current and future decisions about their medical treatment? and place of care. Discussed with patient that it is a process where a patients? current condition and prognosis are reviewed, their wishes for information? regarding their illness are elicited, and likely medical dilemmas are presented? and options discussed. The form can be amended as needed, reviewed yearly and? make changes as needed IPPE/AWV ? year old presents? for her ? Annual? Wellness Visit, initial visit.? Medical / Social History Reviewed? Past Medical History ?Yes? . ? [place]? of Care / Care Team list updated ?Yes . ? Surgical/Hospitalization? History ?Yes . ? Current Medications? (including OTC and supplements) ?Yes . ? Family History ?Yes? . ? Tobacco? Control form ?Yes . ? AUDIT-C (Alcohol use) form? ?Yes . ? Illicit drug use in Social? History ?Yes . ? Current diagnosis of? depression? ?No ? Appropriate PHQ2/PHQ9? completed ?Yes . ? Data entered by ?Medical? Development Disability Specialist and reviewed by provider ? Fall Risk ? Fall? History? Have you had any falls with? injury in the past year? ?No . ? Have you had two or more? falls in the past year? ?No . ? Fall Risk Assessment: ?No? falls in the past year . ? HRA filled out by? the patient, reviewed by Provider and scanned. ? IPPE/AWV ? Balance? Rom[place]? ?Yes . ? Tandem? walk ?Yes . ? Walk and? Turn ?Yes . ? Rise from? sit to stand ?Yes . ?Vision? Corrective? lens ?Yes ? Vision? screen ? Up-to-date, has an appointment [] for vision? screening and glaucoma screening ?Hearing? Whisper? test ?pass .? Initiated the conversation about Advanced Directives. Advanced Directives help? patients prepare for current and future decisions about their medical treatment? and place of care. Discussed with patient that it is a process where a patients? current condition and prognosis are reviewed, their wishes for information? regarding their illness are elicited, and likely medical dilemmas are presented? and options discussed. The form can be amended as needed, reviewed yearly and? make changes as needed Written? Plan?Completed. See Patient? Documents. [facility], [facility] Medical History (Updated 04/06/25 @ 13:49 by Ivett Jaimes MD) Sessile serrated polyp of colon Vitamin D deficiency Osteoporosis Psoriasis (a type of skin inflammation) Surgical History (Updated 04/06/25 @ 13:49 by Ivett Jaimes MD) Hx of colonoscopy with polypectomy Hx of colonoscopy Family History Father Melanoma Mother No problems noted. Social History Housing: Apartment Patient Tobacco Use Status: Current everyday Tobacco user Cigarettes Per Day: 5 e-Cigarette/Vaping Use: Never Used Current occupational status: employed Cognitive needs: No Hearing needs: No Vision needs: Yes Questionnaire Medicare Wellness Checkup [age] What gender do you identify with?: female During the past 4 weeks, how much have you been bothered by emotional problems such as feeling anxious, depressed, irritable, sad or downhearted, and blue?: not at all During the past 4 weeks, has your physical & emotional health limited your social activities with family, friends, neighbors, or groups?: not at all During the past 4 weeks, how much bodily pain have you generally had?: no pain During the past 4 weeks, was someone available to help you if you needed & wanted help?: yes, quite a bit During the past 4 weeks, what was the hardest physical activity you could do for at least 2 minutes?: moderate Can you get to places out of walking distance without help? (For eg., can you travel alone on buses, taxis or drive your car?): Yes Can you go shopping for groceries or clothes without someone's help?: Yes Can you prepare your own meals?: Yes Can you do your housework without help?: Yes Because of any health problems, do you need the help of another person with your personal care needs such as eating, bathing, dressing or getting around the house?: No Can you handle your own money without help?: Yes During the past 4 weeks, how would you rate your health in general?: very good During the past 4 weeks how have things been going for you?: pretty well Are you having difficulties driving your car?: no Do you always fasten your seat belt when you are in a car?: yes, usually During past 4 weeks, have you been bothered by the following: never: Falling or dizzy when standing up, Sexual problems?, Trouble eating well?, Teeth or denture problems?, Problems using the telephone? and Tiredness or fatigue? Have you fallen 2 or more times in the past year?: No Are you afraid of falling?: No Are you a smoker?: yes, and I might quit During the past 4 weeks, how many drinks of wine, beer, or other alcoholic beverages did you have?: 2-5 drinks per week Do you exercise for about 20 minutes 3 or more times a week?: yes, most of the time Have you been given information to help with the following?: no: Hazards in your house that might hurt you? and no: Keeping track of your medications? How often do you have trouble taking medicines the way you have been told to take them?: I always take medicine as prescribed How confident are you that you can control & manage most of your health problems?: very confident What is your race?: White Mini Mental State Exam (MMSE) Orientation What is the (year) (season) (date) (day) (month)?: year, season, date, day and month Where are we (state) (county) (town or city) (hospital) (floor)?: state, county, town or city, hospital/clinic and floor Registration Name of 3 unrelated objects clearly and slowly, then ask patient to repeat all 3 of them. (1st repeat determines score. Make sure they can repeat all three): object 1, object 2 and object 3 Attention & Calculation (CHOOSE ONE) Spell WORLD backwards (DLROW): 5 letters Recall Ask patient to repeat the 3 items from question #3.: object 1, object 2 and object 3 Language Show patient a wristwatch & ask what it is. Repeat for pencil.: watch and pencil Ask the patient to repeat the phrase 'No ifs, ands, or buts' after you.: correct Ask the patient to 'take a piece of paper with their right hand' 'fold paper in half' 'place paper on floor': take paper in right hand, fold paper in half and place paper on floor Print the sentence 'CLOSE YOUR EYES' on a piece. If patient actually closes eyes then score.: followed written direction Give patient a blank piece of paper & ask to write a sentence. Score if it contains a noun & verb.: sentence contains subject and verb Score Score: 29 Review of Systems Const All systems reviewed & are unremarkable except as noted in HPI and below Eyes Reports no additional complaints ENT Reports no additional complaints Card Reports no additional complaints Resp Reports no additional complaints GI Reports no additional complaints Reports no additional complaints Physical Exam Vital Signs: Last Vital Signs Temp 98.1 F 04/06/25 13:34 Pulse 83 04/06/25 13:34 Resp 19 04/06/25 13:34 BP 136/82 04/06/25 13:34 Pulse Ox 97 04/06/25 13:34 Oxygen Delivery Method Room Air 04/06/25 13:34 BMI result Body Mass Index 20.8 Const General: no acute distress HEENT Head: Yes normal to inspection Ears: TM's normal bilaterally Neck Neck: Yes supple Resp Effort & Inspection: normal respiratory effort Auscultation: clear to auscultation bilaterally Cardio Rhythm: regular rhythm Heart sounds: S1 normal heart sound present and S2 normal heart sound present GI Inspection: Yes normal to inspection Palpation (GI): Soft to palpation Percussion: Yes normal to percussion Auscultation: normal bowel sounds Extrem General: Yes no clubbing, cyanosis or edema Assessment & Plan Assessment & Plan (1) Osteoporosis: Comment: 05/2023 T score -3.7 AP spine, pt declined treatment Code(s): M81.0 - Age-related osteoporosis without current pathological fracture Plan: Continue vitamin-D supplement and weight-bearing exercises, patient declined repeat DEXA and treatment (2) Annual physical exam: Code(s): Z00.00 - Encounter for general adult medical examination without abnormal findings Plan: Well-balanced diet regular physical activity discussed with the patient she will schedule mammogram is due for repeat colonoscopy next February (3) Tobacco consumption: Comment: 07/06 PPD x 20+years, Code(s): Z72.0 - Tobacco use Plan: Tobacco quitting discussed with the patient Coding Level of Care Code Medicare Subsequent (G0439) Diagnoses Osteoporosis M81.0 Annual physical exam Z00.00 Tobacco consumption Z72.0 CPT Codes Advance Care Planning - Advance Care Planning discussion: On file, no changes ([id number]) Advance Care Planning - Time spent: 1-15 minutes, on File ([id number]) Advance Care Planning Advance Care Planning discussion: On file, no changes Forms completed: Health Care Proxy Time spent: 1-15 minutes, on File
== END 2025-04-06 13:57 | disposition home or self-care (01) ==
LOC: HO.HMCC 13:30
PROVIDERS: PCP Internal Medicine; Visit Provider Internal Medicine
DX: Z00.00 Encounter for general adult medical examination without abnormal findings (principal); M81.0 Age-related osteoporosis without current pathological fracture; Z72.0 Tobacco use